=== PATIENT | female | born 1970 | race Caucasian/White ===

== ENCOUNTER 2021-12-14 10:05 | Outpatient (REF) | payer OTHER, SELFPAY ==
[2021-12-14 10:52] LABS: MANUAL DIFF FLAG NO
[2021-12-14 10:58] LABS: Basophils Percent Auto 0.5 % (0-2); Eosinophils Absolute Auto 0.1 X10*3/uL (0.0-0.4); Eosinophils Percent Auto 1.1 % (0-4); Hematocrit 43.9 % (37.0-47.0); Hemoglobin 14.2 g/dl (12.0-16.0); Imm Gran Abs Auto 0.02 X10*3/uL (0.00-0.03); Imm Gran Pct Auto 0.3 % (0.0-0.4); Lymphocytes Absolute Auto 1.8 X10*3/uL (1.2-4.9); Lymphocytes Percent Auto 24.6 % (20-40); Mean Corpuscular HGB Conc 32.3 g/dl (31.0-35.0); Mean Corpuscular Hemoglobin 30.2 pg (27.0-33.0); Mean Corpuscular Volume 93.4 fL (80.0-98.0); Mean Platelet Volume 9.5 fL (9.4-12.3); Monocytes Absolute Auto 0.5 X10*3/uL (0.1-1.2); Monocytes Percent Auto 6.7 % (2-11); Neutrophils Percent Auto 66.8 % (45-73); Platelet Count 372 X10*3/uL (160-400); Red Cell Distribution Width 12.8 % (11.0-16.0); White Blood Count 7.4 X10*3/uL (4.8-10.8)
[2021-12-14 11:09] LABS: Estimated Average Glucose 103 mg/dL; Hemoglobin A1c % 5.2 %
[2021-12-14 11:45] LABS: Alanine Aminotransferase 33 U/L (0-31); Albumin Level 4.4 g/dL (3.5-5.0); Alkaline Phosphatase 136 U/L (39-117); Anion Gap 15 (12-20); Aspartate Amino Transferase 28 U/L (5-31); Bilirubin Total 1.3 mg/dL (0.0-1.0); Blood Urea Nitrogen 17 mg/dL (9-16); Calcium 10.1 mg/dL (8.4-10.2); Carbon Dioxide 29 mmol/L (22-29); Chloride 100 mmol/L (96-108); Cholesterol 235 mg/dL; Estimated Glomerular Filt Rate > 60; Glucose Fasting 102 mg/dL (60-99); HDL Cholesterol 65 mg/dL; LDL Cholesterol Calculated 141 mg/dl; Potassium 4.7 mmol/L (3.3-5.1); Sodium 139 mmol/L (135-145); Total Protein 7.7 g/dL (6.5-8.0); Triglycerides 148 mg/dL
[2021-12-14 12:10] LABS: Free T4 (Free Thyroxine) 1.35 ng/dL (0.71-1.85); Thyroid Stimulating Hormone 0.41 uIU/mL (0.32-4.0); Vitamin D 25-OH Total 55.9 ng/mL (>30)
== END 2021-12-14 10:06 | disposition home or self-care (01) ==
LOC: HO.MANLDS 10:05
PROVIDERS: PCP Physician Assistant; Visit Provider Physician Assistant
DX: Z00.00 Encounter for general adult medical examination without abnormal findings (principal)
CPT/HCPCS: 36415; 80053; 80061; 82306; 83036; 84439; 84443; 85025

== ENCOUNTER 2022-02-04 12:27 | Outpatient (REF) | payer OTHER, SELFPAY ==
[2022-02-04 18:34] LABS: C Reactive Protein 3.29 mg/dL (< or = 0.50); Rheumatoid Factor < 15.0 IU/mL (<15.0); Uric Acid 6.4 mg/dL (2.4-5.7)
[2022-02-04 19:15] LABS: Erythrocyte Sedimentation Rate 30 MM/HR (0-20)
[2022-02-05 17:22] LABS: Follicle Stimulating Hormone 53.1 mIU/mL
[2022-02-05 17:32] LABS: Lyme Abs Screen <0.90 index
[2022-02-06 14:22] LABS: Anti Nuclear Antibody Screen NEGATIVE (NEGATIVE)
[2022-02-07 03:42] LABS: A. Phagocytophilum Ab IgG <1:64 (<1:64); A. Phagocytophilum Ab IgM <1:20 (<1:20); E. Chaffeensis Ab IgG <1:64 (<1:64); E. Chaffeensis Ab IgM <1:20 (<1:20)
[2022-02-09 19:21] LABS: Estradiol Free 0.18 pg/mL; Estradiol, Ultrasensitive 9 pg/mL
[2022-02-14 18:02] LABS: Progesterone 0.2 ng/mL
== END 2022-02-04 12:28 | disposition home or self-care (01) ==
LOC: HO.MANLDS 12:27
PROVIDERS: Visit Provider Physician Assistant
DX: M25.50 Pain in unspecified joint (principal); N95.1 Menopausal and female climacteric states
CPT/HCPCS: 82670; 82681; 83001; 83002; 84144; 84550; 85652; 86038; 86039; 86140; 86431; 86617; 86618; 86666

== ENCOUNTER 2022-03-01 09:18 | Outpatient (REF) | payer OTHER, SELFPAY ==
[2022-03-01 11:41] LABS: Uric Acid 5.3 mg/dL (2.4-5.7)
== END 2022-03-01 09:19 | disposition home or self-care (01) ==
LOC: HO.MANLDS 09:18
PROVIDERS: Visit Provider Physician Assistant
DX: M10.9 Gout, unspecified (principal)
CPT/HCPCS: 36415; 84550

== ENCOUNTER 2023-03-31 10:11 | Outpatient (REF) | payer OTHER, SELFPAY ==
[2023-03-31 16:23] LABS: Uric Acid 6.4 mg/dL (2.4-5.7)
== END 2023-03-31 10:12 | disposition home or self-care (01) ==
LOC: HO.MANLDS 10:11
PROVIDERS: Visit Provider Physician Assistant
DX: E79.0 Hyperuricemia without signs of inflammatory arthritis and tophaceous disease (principal)
CPT/HCPCS: 36415; 84550

== ENCOUNTER 2023-10-03 09:46 | Outpatient (REF) | payer OTHER, SELFPAY ==
[2023-10-03 12:35] LABS: MANUAL DIFF FLAG NO
[2023-10-03 12:52] LABS: Basophils Percent Auto 0.5 % (0-2); Eosinophils Absolute Auto 0.1 X10*3/uL (0.0-0.4); Eosinophils Percent Auto 1.3 % (0-4); Hemoglobin 12.4 g/dl (12.0-16.0); Imm Gran Abs Auto 0.01 X10*3/uL (0.00-0.03); Imm Gran Pct Auto 0.2 % (0.0-0.4); Lymphocytes Absolute Auto 1.6 X10*3/uL (1.2-4.9); Lymphocytes Percent Auto 29.2 % (20-40); Mean Corpuscular HGB Conc 32.6 g/dl (31.0-35.0); Mean Platelet Volume 9.7 fL (9.4-12.3); Monocytes Absolute Auto 0.4 X10*3/uL (0.1-1.2); Monocytes Percent Auto 7.3 % (2-11); Neutrophils Absolute Auto 3.4 x10*3/uL (2.0-8.3); Neutrophils Percent Auto 61.5 % (45-73); Platelet Count 314 X10*3/uL (160-400); Red Blood Count 4.13 X10*6/uL (4.20-5.50); Red Cell Distribution Width 13.4 % (11.0-16.0); White Blood Count 5.6 X10*3/uL (4.8-10.8)
[2023-10-03 13:02] LABS: Estimated Average Glucose 97 mg/dL
[2023-10-03 13:10] LABS: Alanine Aminotransferase 23 U/L (0-31); Albumin Level 3.9 g/dL (3.5-5.0); Alkaline Phosphatase 135 U/L (39-117); Anion Gap 12 (12-20); Aspartate Amino Transferase 18 U/L (5-31); Bilirubin Total 0.5 mg/dL (0.0-1.0); Blood Urea Nitrogen 16 mg/dL (9-16); Calcium 9.6 mg/dL (8.4-10.2); Carbon Dioxide 26 mmol/L (22-29); Chloride 102 mmol/L (96-108); Estimated Glomerular Filt Rate > 60; Glucose Random 89 mg/dL (60-115); Iron 105 mcg/dL (30-160); Magnesium 2.1 mg/dL (1.6-2.6); Percent Iron Saturation 34 % (15-50); Phosphorus 3.3 mg/dL (2.7-4.5); Sodium 136 mmol/L (135-145); Total Iron Binding Capacity 305 mcg/dL (228-428); Total Protein 7.3 g/dL (6.5-8.0); Unsaturated Iron Binding 200 ug/dL
[2023-10-03 13:30] LABS: Ferritin 235 ng/mL (10-250); Free T4 (Free Thyroxine) 1.21 ng/dL (0.71-1.85); Thyroid Stimulating Hormone 0.09 uIU/mL (0.32-4.0)
== END 2023-10-03 09:47 | disposition home or self-care (01) ==
LOC: HO.MANLDS 09:46
PROVIDERS: Visit Provider Physician Assistant
DX: M62.830 Muscle spasm of back (principal)
CPT/HCPCS: 36415; 80053; 82550; 82728; 83036; 83540; 83735; 83970; 84100; 84439; 84443; 85025

== ENCOUNTER 2025-02-22 11:29 | Outpatient (REF) | payer OTHER, SELFPAY ==
--- OUTSIDE RECORDS SUMMARY | 2023-11-10 05:00 | XMS_ITS ---
Author Organization [facility] Address [address] [address] Care Team Providers Care Metal Turner Name Role Phone YUMIKO MOELLER Unavailable [phone] REASON FOR VISIT ? PROLAPSE Encounters Encounter Location Date Provider Diagnosis [facility] [employer] [address] [address] 11/10/2023 YUMIKO MOELLER Plan Of Treatment No Information Progress Notes * HERRERA JEFFERYADOB:1970 (54 yo F)Acc No.[id number]:11/10/2023 Progress Note Patient: DIMITRI WALLS Provider: Ney MOELLER MD :1970 A ge:53 Y S ex:Female Date:11/10/2023 Address:[address] [place], [place] [id number] Subjective: * Chief Complaints: * 1 . ? PROLAPSE. * Medical History: Objective: * Vitals: Assessment: Plan: * Treatment: * Images: Billing Information: * Visit Code: * Procedure Codes: * Electronic signature of YUMIKO MOELLER MD on 02/22/2025 at 12:43 PM EDT Sign off status: Pending * Provider: Ney MOELLER MD Date: 11/10/2023 Generated for Cecyi salome/Phoebe/eTransmitting on: 02/22/2025 12:43 PM EDT
--- OUTSIDE RECORDS SUMMARY | 2025-02-22 12:43 | XMS_ITS | Continuity of Care Document ---
Author Organization [facility], [facility] Address [address] [place] [address] [place] [address] Assessment No assessment recorded. Plan of Treatment Reminders Order Date Submit Date Provider Last Modified By Organization Details Last Modified Time Details Appointments FOLLOW UP 15 2024 10:45A M ZAKI BANUELOS Not available Not available Not available Lab CMP, serum or plasma 2024 025 [facility], [address] [place] [address], [id number], 02/22/2025 11:23:51 hemoglobi n A1c, QN, blood 2024 025 [facility], [address] [place] [address], [id number], 02/22/2025 11:23:51 TSH + free T4, serum 2024 025 [facility], [address] [place] [address], [id number], 02/22/2025 11:23:51 CBC w/ auto diff 2024 025 [facility], [address] [place] [address], [id number], 02/22/2025 11:23:51 Referral None recorded. Procedures None recorded. Surgeries None recorded. Imaging None recorded. Medication Orders None recorded. Patient TargetsNo targets recorded. Patient InstructionsNo instructions recorded. Reason for Referral None Reported. Problems Name Problem SNOMED Code Status Onset Date Resolution Date Notes Provider Name and Address Organization Details Recorded Time Hypothyr oidism 79111375 Active 2017 Not Available [facility] 3 13:45:22 Morbid obesity 354124697 Completed 201702/05/2019 Henry Hoyos, DO [address] [place], [address], [facility] 9 16:19:51 Irritabl e bowel syndrome 39015380 Active 2017 Not Available [facility] 3 13:45:22 Low back pain 990089520 Active 2017 Not Available [facility] 3 13:45:22 Non-alco holic fatty liver 413342684 Active 2017 Not Available [facility] 3 13:45:22 Urinary tract infectio us disease 09969199 Active 11/2012 Not Available [facility] 3 13:45:22 Menometr orrhagia 609549267 Active 2017 Not Available [facility] 3 13:45:22 Non-neop lastic nevus 351633514 Active 2017 Not Available [facility] 3 13:45:22 Paroxysm al atrial fibrilla tion 469973976 Active 2018 2/2 pneumoni a Not Available [facility] 3 13:45:22 Atrial fibrilla tion 15166799 Active 2019 Not Available [facility] 3 13:45:22 Multiple benign melanocy tic nevi 967968073 Active 2021 Not Available [facility] 3 13:45:22 Colorect al cancer detected by DNA-base d stool screenin g 636974252 Active 2021 Not Available [facility] 3 13:45:22 Pain of multiple joints 02267922 Active 2021 Not Available [facility] 3 13:45:22 Menopaus e Active 2021 Not Available [facility] 3 13:45:22 Uric acid level above referenc e range 39372089 Active 2021 Not Available [facility] 3 13:45:22 Gout 11277175 Active 2021 Not Available [facility] 3 13:45:22 Anxiety 83510837 Active 2021 ZAKI BANUELOS [address] [place], [address], [facility] 5 11:21:42 Pain of left hip joint 9891606113 90250 Active 2022 Not Available [facility] 3 13:45:22 Recurren t major depressi ve episodes , moderate 518881785 Active 2022 Not Available [facility] 3 13:45:22 Obesity 321619316 Active 2022 Not Available [facility] 3 13:45:22 Osteoart hritis of left hip joint 8692663669 05263 Active 2022 Not Available [facility] 3 13:45:22 Pain of hip region 36756077 Active 2022 Not Available [facility] 3 13:45:22 Impaired fasting glycemia 895032752 Active 2022 ZAKI BANUELOS [address] [place], [address], [facility] 3 14:39:50 Overweig ht 241605437 Active 2022 ZAKI BANUELOS [address] [place], [address], [facility] 3 09:49:44 Constipa tion 57961334 Active 2023 ZAKI BANUELOS [address] [place], [address], [facility] 4 11:04:32 Depressi ve disorder 72808019 Active 2023 ZAKI BANUELOS [address] [place], [address], [facility] 4 11:08:51 Spasm of back muscles 988400606 Active 2023 ZAKI BANUELOS [address] [place] [address], [address], [facility] 4 11:09:38 Pain of left knee joint 7516528169 10456 Active 2023 ZAKI BANUELOS [address] [place] [address], [address], [facility] 4 11:32:32 Osteopen ia 351600922 Active 2023 ZAKI BANUELOS [address] [place] [address], [address], [facility] 4 08:59:26 Patellof emoral syndrome of left knee 7524832701 061249 Active 2023 Henry Hoyos DO [address] [place] [address], [address], [facility] 4 11:38:59 Severe major depressi on, single episode, without psychoti c features 87306793 Active 2024 ZAKI BANUELOS [address] [place] [address], [address], [facility] 5 11:16:08 Intolera nt of heat 02827438 Active 2024 ZAKI BANUELOS [address] [place] [address], [address], [facility] 5 11:22:05 Problem Notes None recorded. Procedures Surgical History Date Name Laterality Status Provider Name and Address Organization Details Recorded Time 025 total replacement of hip completed ZAKI BANUELOS [address] [place] [address], [phone], [facility] 09/20/2024 11:26:09 024 Corticosteroid Injection completed Henry Hoyos DO [address] [place] [address], [address], [facility] 12/12/2023 11:38:50 022 Colonoscopy completed Shar Hoyos [facility] 03/22/2022 11:56:53 Imaging Results None recorded. Procedure Notes None recorded. Medical Equipment None Reported. Allergies Allergen ID Allergen Name Allergen Category Reaction Reaction Severity Criticality Documentation Date Start Date Code Code System Note Provider Name and Address Organization Details Recorded Time 210 amoxicill in medicatio n Not available Not available Not available 10/27/2017 723 RxNorm Letitia petersen, [facility] 8 09:30:30 8698 cefazolin sodium medicatio n Not available Not available Not available 09/20/202434151 1 RxNorm ZAKI BANUELOS [address] [place], [address], [facility] 5 11:25:05 Medications Name Sig Start Date Stop Date Status Note LastModified by Organization Details LastModified Time celecoxib 200 mg capsule TAKE 1 CAPSULE BY MOUTH TWICE DAILY NEEDED 2024 active Not Available Not Available Not Avai lable venlafaxi ne ER 37.5 mg capsule,e xtended release 24 hr Take 1 capsule every day by oral route for 90 days. 04/17 completed Not Available Not Available Not Available venlafaxi ne ER 75 mg capsule,e xtended release 24 hr TAKE 1 CAPSULE BY MOUTH EVERY DAY 06/09 completed Not Available Not Available Not Available ibuprofen 800 mg tablet 07/30 completed Not Available Not Available Not Available diltiazem CD 180 mg capsule,e xtended release 24 hr Take 1 capsule every day by oral route. active Not Available Not Available No t Available tizanidin e 4 mg tablet TAKE 1 TABLET BY MOUTH THREE TIMES DAILY 03/31 completed Not Available Not Available Not Available fluconazo le 150 mg tablet 07/30 completed Not Available Not Available Not Available levonorge strel-eth inyl estradiol 0.1 mg-20 mcg tablet 07/30 completed Not Available Not Available Not Available hydrocodo ne 5 mg-acetam inophen 325 mg tablet TAKE 1 TABLET BY MOUTH EVERY 6 HOURS FOR 7 DAYS NEEDED 05/26 completed Not Available Not Available Not Available diltiazem CD 240 mg capsule,e xtended release 24 hr TAKE 1 CAPSULE BY MOUTH EVERY DAY 01/19 completed Not Available Not Available Not Available meloxicam 15 mg tablet TAKE 1 TABLET BY MOUTH EVERY DAY WITH FOOD NEEDED FOR PAIN 03/19 completed Not Available Not Available Not Available prednison e 20 mg tablet TAKE 1 TABLET BY MOUTH EVERY DAY FOR 14 DAYS 11/15 completed Not Available Not Available Not Available sertralin e 100 mg tablet TAKE 1 TABLET BY MOUTH EVERY DAY 2024 active Not Available Not Available Not Avai lable venlafaxi ne ER 150 mg capsule,e xtended release 24 hr TAKE 1 CAPSULE BY MOUTH EVERY DAY 11/10 completed Not Available Not Available Not Available sumatript an 50 mg tablet Take 1 tablet by oral route as needed for 30 days. 05/08 completed Not Available Not Available Not Available diltiazem ER 240 mg capsule,2 4 hr,extend ed release Take 1 capsule every day by oral route. 07/02 completed Not Available Not Available Not Available allopurin ol 100 mg tablet TAKE 1 TABLET BY MOUTH EVERY DAY 12/03 completed Not Available Not Available Not Available sulfameth oxazole 800 mg-trimet hoprim 160 mg tablet 07/30 completed Not Available Not Available Not Available peg-elect rolyte solution 420 gram oral solution 05/22 completed Not Available Not Available Not Available aspirin 81 mg tablet,de layed release 09/20 completed Not Available Not Available Not Available tramadol 50 mg tablet TAKE 1 TABLET BY MOUTH THREE TIMES DAILY NEEDED FOR PAIN 03/31 completed Not Available Not Available Not Available amitripty line 50 mg tablet TAKE 1 TABLET BY MOUTH EVERY DAY 05/24 completed d/c Not Available Not Available Not Available Synthroid 175 mcg tablet TAKE 1 TABLET DAILY active Not Available Not Available No t Available meloxicam 7.5 mg tablet TAKE 1 TABLET BY MOUTH TWICE DAILY NEEDED 05/26 completed Not Available Not Available Not Available amitripty line 25 mg tablet TAKE 1 TABLET BY MOUTH EVERY DAY 03/19 completed Not Available Not Available Not Available lorazepam 0.5 mg tablet TAKE 1 TABLET BY MOUTH THREE TIMES DAILY NEEDED active taking 2xs a day, morning- evening Not Available Not Available Not Available phenazopy ridine 100 mg tablet 07/30 completed Not Available Not Available Not Available paroxetin e 20 mg tablet TAKE 1 TABLET BY MOUTH ONCE DAILY 06/09 completed Not Available Not Available Not Available oseltamiv ir 75 mg capsule TAKE 1 CAPSULE BY MOUTH TWICE DAILY FOR 5 DAYS 01/26 completed Not Available Not Available Not Available lidocaine 5 % topical patch APPLY 1 PATCH TOPICALL Y TO THE SKIN DAILY. MAY WEAR UP TO 12 HOURS 09/20 completed Not Available Not Available Not Available flecainid e 50 mg tablet Take 1 tablet twice a day by oral route. 09/22 completed Not Available Not Available Not Available indometha parish 25 mg capsule 05/08 completed Not Available Not Available Not Available betametha sone, augmented 0.05 % topical ointment 12/03 completed Not Available Not Available Not Available gabapenti n 300 mg capsule TAKE 1 CAPSULE BY MOUTH TWICE DAILY FOR 7 DAYS DIRECTED 04/14 completed Not Available Not Available Not Available diclofena c sodium 75 mg tablet,de layed release TAKE 1 TABLET BY MOUTH TWICE DAILY DIRECTED 04/21 completed Not Available Not Available Not Available mupirocin 2 % topical ointment APPLY TOPICALL Y TO BILATERA L NASAL VESTIBUL E TWICE DAILY STARTING 5 DAYS PRIOR TO SURGERY 09/20 completed Not Available Not Available Not Available methylpre dnisolone 4 mg tablets in a dose pack FOLLOW PACKAGE DIRECTIO NS 05/26 completed Not Available Not Available Not Available ondansetr on 4 mg disintegr ating tablet DISSOLVE 1 TABLET IN THE MOUTH EVERY 8 HOURS NEEDED FOR NAUSEA OR VOMITING . 09/20 completed Not Available Not Available Not Available sertralin e 50 mg tablet TAKE 1 TABLET BY MOUTH EVERY DAY DIRECTED 01/26 completed Not Available Not Available Not Available nabumeton e 500 mg tablet TAKE 1 TABLET BY MOUTH TWICE DAILY 12/21 completed Not Available Not Available Not Available oxycodone 5 mg tablet TAKE 1 TABLET (5 MG TOTAL) BY MOUTH EVERY 4 HOURS FOR 5 DAYS. MAX DAILY AMOUNT: 30 MG 09/20 completed Not Available Not Available Not Available bupropion HCl XL 150 mg 24 hr tablet, extended release TAKE 1 TABLET BY MOUTH EVERY DAY DIRECTED 01/19 completed Not Available Not Available Not Available nitrofura ntoin monohydra te/macroc rystals 100 mg capsule 07/30 completed Not Available Not Available Not Available duloxetin e 60 mg capsule,d elayed release TAKE 1 CAPSULE BY MOUTH EVERY DAY 01/19 completed Not Available Not Available Not Available pregabali n 75 mg capsule TAKE 1 CAPSULE BY MOUTH TWICE DAILY FOR 14 DAYS DIRECTED 05/09 completed Not Available Not Available Not Available pregabali n 100 mg capsule TAKE 2 CAPSULES BY MOUTH X 1 WEEK THEN TAKE 1 CAPSULE X 1 WEEK 01/19 completed Not Available Not Available Not Available pregabali n 150 mg capsule TAKE ONE CAPSULE BID PRN FOR PAIN 11/30 completed Not Available Not Available Not Available pregabali n 200 mg capsule TAKE 1 CAPSULE BY MOUTH TWICE DAILY 01/19 completed TAKING ONE > TAPERING OFF, will use 75 mg qd after then stop Not Available Not Available Not Available chlorhexi dine gluconate 0.12 % mouthwash RINSE AND SPIT BY MOUTH WITH 15 ML TWICE DAILY FOR 2 DAYS 09/20 completed Not Available Not Available Not Available Aspir-81 Take one tablet once a day 01/26 completed Not Available Not Available Not Available amitripty line 11/10 completed Not Available Not Available Not Available hydrocodo ne 5 mg-acetam inophen 300 mg tablet Take 1 tablet every 4 hours by oral route for 7 days. 04/04 completed Not Available Not Available Not Available ProAir HFA 90 mcg/actua tion aerosol inhaler Inhale 2 puffs every 4 hours by inhalati on route for 30 days. 09/22 completed Not Available Not Available Not Available Jolessa 0.15 mg-30 mcg (91) tablets,3 month dose pack Take 1 tablet every day by oral route. 05/08 completed Not Available Not Available Not Available oxycodone 10 mg tablet TAKE 1 TABLET BY MOUTH FOUR TIMES DAILY FOR 14 DAYS NEEDED 09/20 completed Not Available Not Available Not Available febuxosta t 40 mg tablet TAKE 1 TABLET DAILY active Not Available Not Available No t Available Contrave 8 mg-90 mg tablet,ex tended release Take two tablets by mouth twice daily 05/26 completed Not Available Not Available Not Available Contrave 11/10 completed Not Available Not Available Not Available duloxetin e 40 mg capsule,d elayed release TAKE 1 CAPSULE BY MOUTH EVERY DAY 09/20 completed Not Available Not Available Not Available semagluti de 0.25 mg or 0.5 mg (2 mg/1.5 mL) subcutane ous pen injector inject 0.25 mg every week for four weeks 03/31 completed Not Available Not Available Not Available semagluti de 1.13mg once weekly active Not Available Not Available No t Available levonorge strel 0.1 mg-ethiny l estradiol 0.02 mg (21)/iron (7) tablet Take 1 tablet every day by oral route for 28 days. 07/30 completed Not Available Not Available Not Available Rybelsus 14 mg tablet TAKE 1 TABLET BY MOUTH EVERY DAY DIRECTED 04/21 completed Not Available Not Available Not Available Mounjaro 2.5 mg/0.5 mL subcutane ous pen injector Inject 0.5 mL every week by subcutan eous route as directed for 30 days. 11/10 completed Not Available Not Available Not Available Ozempic 0.25 mg or 0.5 mg (2 mg/3 mL) subcutane ous pen injector 03/31 completed Not Available Not Available Not Available Zepbound 5 mg/0.5 mL subcutane ous pen injector Inject 5 mg every week by subcutan eous route as needed for 30 days. 12/21 completed Not Available Not Available Not Available Zepbound 2.5 mg/0.5 mL subcutane ous pen injector Inject 0.5 mL every week by subcutan eous route as directed for 30 days. 02/19 completed Not Available Not Available Not Available Vitals Date Recorded Body height Body mass index (BMI) Body weight Oxygen saturation Oxygen saturation in Arterial blood by Pulse oximetry Heart rate Systolic blood pressure Diastolic blood pressure Provider Name and Address Organization Details Last Updated DateTime 07/01/202 5 168.28 cm 40.5 kg/m2 626914. 87 g 98 % 98 % 70 /min 124 mm[Hg] 72 mm[Hg] [facility] 10:57:56 Social History Question Answer Notes LastModified by Organizat ion Details LastModified Time Tobacco Smoking Status Never Smoker Not Available [facility] 06/27/2020 03:36:23 What Was The Date Of Your Most Recent Tobacco Screening? 02/22/2025 [email or web address] Information not available 02/22/2025 Sex: Unknown Functional Status Question Answer Note LastModified by Organization D etails LastModified Time Do you or have you ever used any other forms of tobacco or nicotine? No [email or web address] Information not available 06/09/2023 Mental Status None recorded. Family History Relationship Description Onset Age of this Age Resolved Age Notes LastModified by Organization Details LastModified Time Mother Depressive disorder Not available 09/23 09:30:19 Mother Obesity Not availabl e 09/23/2018 09:30:48 Mother Disorder of thyroid gland Not available 09/23 09:31:01 Mother Diabetes mellitus Not available 09/23 09:31:42 Mother Malignant tumor of pancreas [email or web address] Not available 14:27:04 Mother Osteoporosis Not cristel ilable 09/23/2018 09:39:40 Mother Malignant neoplasm of uterus [email or web address] Not available 14:27:04 Sister Depressive disorder Not available 09/23 09:30:19 Sister Migraine Not availab le 09/23/2018 09:30:30 Sister Obesity Not availabl e 09/23/2018 09:30:48 Sister Disorder of thyroid gland Not available 09/23 09:31:01 Sister Diabetes mellitus Not available 09/23 09:31:42 Sister Essential hypertension [email or web address] Not available 01/19/2025 14:27:04 Sister Cerebrovascu lar accident Not available 09:37:19 Father Obesity Not availabl e 09/23/2018 09:30:48 Father Gout [email or web address] Not availab le 01/19/2025 14:27:04 Father Diabetes mellitus Not available 09/23 09:31:42 Father Cerebrovascu lar accident Not available 09:32:02 Father Essential hypertension [email or web address] Not available 01/19/2025 14:27:04 Paternal Grandmother Cerebrovascu lar accident Not available 09:37:27 Maternal Grandfather Malignant tumor of colon 80 [email or web address] Not available 14:27:04 Medical History Condition Response Coronary Artery Disease N Other N Gout N Blood Diseases N Kidney Stones N Hyperthyroidism N Blood Transfusion N Breast Cancer N Hypothyroidism Y Lung Disease N COPD N Depression N Defects or Inherited Disease N Difficulty Swallowing N Anesthesia Complications N Meniere's disease N Anxiety Disorder N Muscle, Joint, or Bone Problems N Obesity Y Vision or Eye Problems Y Arthritis N Polyps N Infertility N Mental Disorder N Cancer N Varicosities N Stroke N Endometriosis N Bladder or Kidney Problems N High Cholesterol N Liver Disease Y Fibromyalgia N Headaches Y Kidney Disease N Allergies/Hayfever N Heart Problems N Hospitalizations N Thyroid Problems N GI Problems Y Skin Problems N Eating Disorder N Anemia N MRSA exposure N Constipation N Mental Illness N Ovarian Cancer N Diabetes N Seizures/Epilepsy N Tuberculosis N Congestive Heart Failure (CHF) N Eczema Y Diverticulitis N Abuse/Domestic Violence N Asthma N Reflux/GERD N Hepatitis N Heart Disease N Pulmonary Embolism N Pre-Eclampsia N Hypertension N Chronic Ear Infections N Osteoporosis N Chicken Pox Y Autism Spectrum Disorder (ASD) N Thrombophilias N Gynecological History Statement/Question Response Duration of Flow (days) 4 Flow Moderate Age at Menarche 13 Frequency of Cycle (Q days) 28 Obstetrics History GPAL:G 2 P 2 0 0 0 Type Value Full Term 2 Total 2 Immunizations Vaccine Type Date Status Note Provider Nam e and Address Organization Details Recorded Time Influenza, split virus, quadrivalent, preservative 1 completed Not Available [facility] 06/13/2023 11:24:16 COVID-19, mRNA, LNP-S, PF, 30 mcg/0.3 mL dose 1 completed Not Available [facility] 06/13/2023 11:24:17 COVID-19, mRNA, LNP-S, PF, 30 mcg/0.3 mL dose 1 completed Not Available [facility] 06/13/2023 11:24:17 COVID-19, mRNA, LNP-S, PF, 30 mcg/0.3 mL dose 1 completed Not Available [facility] 06/13/2023 11:24:17 zoster, unspecified formulation 2 completed Not Available [facility] 06/13/2023 11:24:17 zoster, unspecified formulation 2 completed Not Available [facility] 06/13/2023 11:24:17 Tdap 3 completed Not Available [facility] 06/13/2023 11:24:17 MMR 7 completed Not Available [facility] 06/13/2023 11:24:17 Past Encounters Encounter ID Performer Location Encounter Start Date Encounter Closed Date Diagnosis/Indication Diagnosis SNOMED-CT Code Diagnosis ICD10 Code Diagnosis [facility] [id number] [facility] [address] [facility] [address] [address] [facility] [place] [address] 01/26/2025 10:56:37 01/26/2025 14:33:23 Depressive disorder 81317765 F33.1 will increase the medication to 100 mgf/u in one week if no improvemen t may consider prozacor adding seroquel Anxiety 46280374 F41.9 cont ativan [id number] Henry Hoyos [facility] [address], [place] [address] 02/07/2025 09:47:33 02/07/2025 10:33:08 Depression screening 611039865 Z13.31 negative Depressive disorder 3548 9007 F33.1 doing much betterwill cont on current dose [id number] Henry Hoyos [facility] [address] [facility], [place] [address] 02/22/2025 10:44:25 02/22/2025 11:50:25 Depression screening 711756251 Z13.31 negative Severe elisha or depression, single episode, without psychotic features 18004839 F32.2 is improving every week, still having sad episodes which is to be excepted Anxiety 82229088 F41.9 cont ativan Pain of le ft knee joint 6508389820 53326 M25.562 stable, is still having some pain but more bearable after the injection Hypothyroidism 26064064 E03.8 recheck levels Impaired f asting glycemia 950071235 R73.01 will send in script for patient for the rybelsus Intolerant of heat 52190 007 R68.89 Health Concerns Section Related Observation LastModified by Organization Detai ls LastModified Time None Recorded Concern Status LastModified by Organization Details LastModified Time None Recorded Payers Encounter Date Sequence Insurance Name Policy Number Policy Arroyo Covered Member ID Arroyo Member ID Guarantor Name 02/22/2025 1 [employer] [id number] Juana Sellersrie [id number] Juana Dupree Notes Date Note Type Note Provider Name a nd Address Organization Details Recorded Time 5 text/html f/u two weeks the patient reports that she is doing okay the patient is noticing some heat intolerance on the medication (sertraline)which is a known side effect/risk on these types of medicationsneeds to be careful with keeping hydrated and staying cool when she canalso would like to check her thyroid as well the patient reports that she is overall stableno other changes needed at this timecontinue on current dosages otherwise will f/u in a few weeks 03/07/25 MM scheduled ZAKI BANUELOS [address] [place] [address], [place], [address], [facility] 02/22/2025 11:27:09 OBGyn Episode No OBEpisode recorded.
--- OUTSIDE RECORDS SUMMARY | 2025-02-22 12:43 | XMS_ITS | Clinical Summary ---
Author Organization [facility] Address [address] [place] [address] Care Team Providers Care Gis Analyst Developer Name Role Phone Henry Hoyos Primary Care Provider [phone] Allergies Active Allergy Reactions Criticality Noted Date Comments Amoxicillin Hives,Unknown 03/06/2013 Medications buPROPion XL (WELLBUTRIN XL) 150 mg tablet SMARTSI Tablet(s) By Mouth Daily 4 Active dilTIAZem CD (CARDIZEM CD) 240 mg 24 hr capsule Take 240 mg by mouth daily. [address] (IRENKA) 40 mg capsule,delayed release(DR/EC) capsule 4 Active febuxostat (ULORIC) 40 mg tablet Take 1 tablet by mouth once a day. 3 Active Synthroid 175 mcg tablet Take 1 tablet by mouth once a day. Active pregabalin (LYRICA) 200 mg capsule SMARTSI Capsule(s) By Mouth Twice Daily 4 Active mupirocin (BACTROBAN) 2% ointmentIndication s:Preoperative examination Apply topically to the affected area 2 times a day. Apply to bilateral nasal vestibule twice a day starting 5 days prior to surgery 22 g 4 Active celecoxib (CeleBREX) 200 mg capsule Take 1 capsule by mouth 2 times a day. 4 Active lidocaine (LIDODERM) 5% patch SMARTSI Patch(s) Topical Daily Active multivit-min/iron/ FA/vit K/lut (CENTRUM MINIS WOMEN 50 PLUS ORAL) Take by mouth. Activ e PATIENT REPORTED OTC MEDICATION Medication Name: loren medina This entry is to document a patient-report ed over the counter medication. Please do not continue this order for inpatient use. Active Vitamin D3 25 mcg (1,000 unit) capsule Take 1 capsule by mouth once a day. Active docusate sodium (COLACE) 100 mg capsule Take 100 mg by mouth 2 times a day. Active polyethylene glycol 3350 (MIRALAX) 17 gram packet Take 17 g by mouth. Mix powder in 4 to 8 oz of water, juice, coffee, or tea prior to administration . Active EX-LAX, SENNOSIDES, ORAL Take by mouth. Active LORazepam (ATIVAN) 0.5 mg tablet Take 0.5 mg by mouth daily as needed for anxiety. Active acetaminophen (TYLENOL) 325 mg tablet Take 2 tablets (650 mg total) by mouth every 6 hours. 5 Active aspirin 81 mg EC tablet Take 1 tablet (81 mg total) by mouth every 12 hours. 60 tablet 5 Active ondansetron (ZOFRAN ODT) 4 mg disintegrating tablet Dissolve 1 tablet (4 mg total) in the mouth every 8 hours as needed for nausea or vomiting. 10 tablet 5 Active Active Problems Problem Noted Date Diagnosed Date Primary osteoarthritis of left hip 08/24/2024 Primary osteoarthritis of both hips 08/03/2024 Morbid obesity 08/03/2024 Paroxysmal A-fib 08/03/2024 Hypothyroidism 08/03/2024 Essential hypertension 08/03/2024 JONNY (obstructive sleep apnea) 08/03/2024 Gout 08/03/2024 Encounters Date Type Department Care Team Description 12/20/2024 Orders Only [facility] [address] [place] [id number] Giovanni, ZAKI Earl 12/19/2024 myChart Message [facility] [address] [place] [id number] Rajat Herrmann MD Upcoming Dental Appointment from Last 3 Months Family History Relation Name Status Comments Father Alive Mother Social History Tobacco Use Types Packs/Day Years Used Date Smoking Tobacco: Never Smokeless Tobacco: Never Tobacco Cessation:Counseling Given: Not Answered Alcohol Use Standard Drinks/Week Comments Not Currently 0 (1 standard drink = 0.6 oz pur e alcohol) [facility] Utilities Answer Date Recorded In the past 12 months has th e electric, gas, oil, or water company threatened to shut off services in your home? No 08/24/2024 Hunger Vital Sign Answer Date Recorded Within the past 12 months, y ou worried that your food would run out before you got the money to buy more. Never true 08/24/20 24 Within the past 12 months, t he food you bought just didn't last and you didn't have money to get more. Never true 08/24/2024 Transportation Answer Date Recorded In the past 12 months, has l ack of reliable transportation kept you from medical appointments, meetings, work or from getting things needed for daily living? No 08/24/2024 Housing Answer Date Recorded Housing Risk Low 2 08/24/2024 Housing Risk Medium Not on file 08/24/2024 Housing Risk High Not on file 08/24/2024 What is your living situation today? [facility]STEAD[facility] 08/24/2024 Comments No Sex and Gender Information Value Date Recorded Sex Assigned at Female 03/14/2023 2:28 PM EDT Legal Sex Female 11:32 AM EDT Gender Identity Female 03/14/2023 2:28 PM EDT Sexual Orientation Straight 03/14/2023 2: 28 PM EDT Last Filed Vital Signs Vital Sign Reading Time Taken Comments Blood Pressure 120/70 08/25/2024 4:30 AM EST Pulse 91 08/25/2024 4:30 AM EST Temperature 36.4 C (97.5 F) 08/25/2024 4:30 AM EST Respiratory Rate 16 08/25/2024 11:5 3 AM EST Oxygen Saturation 98% 08/25/2024 4:30 AM EST Inhaled Oxygen Concentration - - Weight 111.5 kg (245 lb 12.8 oz) 08/24/2024 8:03 AM EST Height 165.8 cm (5' 5.28 ) 08/24/2024 8:03 AM ES T Body Mass Index 40.56 08/24/2024 8:03 AM EST Plan of Treatment Upcoming Encounters Date Type Department Care Team (Late st Contact Info) Description 08/31/2025 1:00 PM EST Follow-Up [facility] [address] [place] [id number] Rajat Herrmann MD [address] [place] [phone] Health Maintenance Due Date Last Done Comments Cologuard 1970 Colon Cancer Screening 1970 Colonoscopy 1970 FOBT / Fit Test 1970 HIV Screening 1970 Hepatitis C Screening 1970 Sigmoidoscopy 1970 Hepatitis B Vaccines (1 of 3 - 19+ 3-dose series) 1989 Pneumococcal Vaccine: 50+ Ye ars (1 of 1 - PCV) 2020 DTaP,Tdap,and Td Vaccines (2 - Td or Tdap) 11/30/2022 11/30/2012 COVID-19 Vaccine (4 - 2023-2 5 season) 2024 06/12/2021, 11/24/2020, 11/03/2020 Mammogram 07/05/2024 07/05/2022, 06/25, 07/03/2021, Additional history exists Alcohol/Substance Use Screening 08/25/2024 Depression Screening and Follow-Up 08/25/2024 Social Drivers of Health Tena ual Screening 08/25/2024 Influenza Vaccine (#1) 2025 06/12/2021 Basic Metabolic Panel 08/25/2025 08/25/2024 , 08/24/2024, 08/19/2024, Additional history exists RSV Vaccine (60+ years old a nd patients) (1 - 1-dose 75+ series) 2045 Zoster Vaccines Completed 11/18/2021, 09/16/2021 Medical Devices Implanted Type Area Clinical Research Technician Device Identifier Shelf Expiration Date Model / Serial / Lot Shell Acetabular Size F 3 Hole Sterile 54mm G7 - [id number] Implanted:Qty: 1 on 08/24/2024 by Rajat Herrmann MD at [facility] Implant Left: Hip Anjum 09/02/2033 [id number] / / [id number] Liner Polyethylene Crosslinked Highly Neutral 36mm Size F Longevity - [id number] Implanted:Qty: 1 on 08/24/2024 by Rajat Herrmann MD at [facility] Implant Left: Hip Anjum 02/03/[id number] / / [id number] Stem Femoral Full Proximal Profile Standard Neck Angle 135 Degree [id number] Echo Bi-Metric - [id number] Implanted:Qty: 1 on 08/24/2024 by Rajat Herrmann MD at [facility] Implant Left: Hip Anjum 04/04/2027 [id number] / / [id number] Head Femoral Ceramic Delta 36mm Standard Neck Type 1 Taper [employer] - [id number] Implanted:Qty: 1 on 08/24/2024 by Rajat Herrmann MD at [facility] Implant Left: Hip Anjum 06/17/2033 [id number] / / [id number] Screw Acetabular Self-Tapping [id number] Trilogy - [id number] Implanted:Qty: 1 on 08/24/2024 by Rajat Herrmann MD at [facility] Screw Left: Hip Anjum 03/04/[id number] / / [id number] Screw Acetabular Self-Tapping [id number] Trilogy - [id number] Implanted:Qty: 1 on 08/24/2024 by Rajat Herrmann MD at [facility] Screw Left: Hip Anjum 04/10/[id number]- 20 / / [id number] Procedures * Due to [place] MST law, this organization might not be sharing negative HIV tests. Procedure Name Priority Date/Time Associated Diagnosis Comments BASIC METABOLIC PANEL Routine 08/25/2024 1:22 AM EST from Last 3 Months or Most Recently Relevant to Health Maintenance Results * Due to [place] MST law, this organization might not be sharing negative HIV tests. * (ABNORMAL) Basic Metabolic Panel (08/25/2024 1:22 AM EST) NA 139 135 - 145 mmol/L 08/25/2024 1:53 AM EST [facility] K 4.1 3.5 - 5.3 mmol/L 08/25/2024 1:53 AM EST [facility] Cl 105 98 - 107 mmol/L 08/25/2024 1:53 AM [facility] CO2 24 22 - 32 mmol/L 08/25/2024 1:53 AM [facility] BUN 16 7 - 23 mg/dL 08/25/2024 1:53 AM [facility] Creatinine 0.74 0.50 - 1.20 mg/dL 08/25/2024 1:53 AM [facility] Glucose 135(H) 65 - 99 mg/dL 08/25/2024 1:53 AM [facility] Calcium 9.0 8.6 - 10.5 mg/dL 08/25/2024 1:53 AM [facility] Anion Gap 10 5 - 15 08/25/2024 1:53 AM [facility] eGFR >90 >=60 mL/min/1. 73m2 08/25/2024 1:53 AM [facility] Comment:The estimated glomer ular filtration rate (eGFR) is calculated using a new formula developed by the NKF-ASN task force to eliminate race-based correction factors. The new formula uses serum/plasma creatinine, age, and gender to determine eGFR. A value below 60mls/min might indicate kidney disease and will be flagged. For additional information, see Fry et al, Am J Kidney Dis. 2021;79(2):268- 288, A Unifying Approach for GFR estimation: Recommendations of the NKF-ASN Task Force on Reassessing the Inclusion of Race in Diagnosing Kidney Disease . Blood Structure of peripheral vein / Unknown Venipuncture / Unknown 08/25/2024 1:22 AM EST 08/25/2024 1:30 AM EST Rajat Herrmann MD LAB BLOOD ORDERABLES Final Result [facility] [address] [place] [address], [place] from Last 3 Months or Most Recently Relevant to Health Maintenance Insurance [employer] PPO/EPO/IND Advance Directives Documents on File Type Date Recorded Patient Child Care Attendant School Expl anation Health Care Proxy 08/03/2024 9:15 AM Heal th Care Proxy 08/03/24 * Full Code (Latest Code Status on File) Date Activated Date Inactivated Comments 08/24/2024 1:45 PM 08/25/2024 3:03 PM * Full Code Date Activated Date Inactivated Comments 08/24/2024 8:39 AM 08/24/2024 1:45 PM Care Teams Gis Analyst Developer Relationship Specialty Start Date End Date Henry Hoyos [address] [place] [id number] PCP - General Internal Medicine 03/14/23
[2025-02-22 13:31] LABS: MANUAL DIFF FLAG NO
[2025-02-22 13:36] LABS: Hematocrit 39.1 % (37.0-47.0); Hemoglobin 12.9 g/dl (12.0-16.0); Imm Gran Abs Auto 0.02 X10*3/uL (0.00-0.03); Imm Gran Pct Auto 0.3 % (0.0-0.4); Lymphocytes Absolute Auto 1.4 X10*3/uL (1.2-4.9); Mean Corpuscular HGB Conc 33.0 g/dl (31.0-35.0); Mean Corpuscular Hemoglobin 30.9 pg (27.0-33.0); Mean Corpuscular Volume 93.5 fL (80.0-98.0); NRBC Abs Auto 0.000 X10*3/uL (0.0-0.012); NRBC Pct Auto 0.0 /100WBC (0.0-0.2); Platelet Count 303 X10*3/uL (160-400); Red Blood Count 4.18 X10*6/uL (4.20-5.50); White Blood Count 6.2 X10*3/uL (4.8-10.8)
[2025-02-22 14:10] LABS: Hemoglobin A1C 108.8267 umol/L; Total Hemoglobin (HGBA1C) 3455.3187 umol/L
[2025-02-22 14:25] LABS: Alanine Aminotransferase 21 U/L (0-31); Albumin Level 4.2 g/dL (3.5-5.0); Alkaline Phosphatase 156 U/L (39-117); Anion Gap 14 (12-20); Aspartate Amino Transferase 25 U/L (5-31); Blood Urea Nitrogen 27 mg/dL (9-16); Calcium 9.5 mg/dL (8.4-10.2); Carbon Dioxide 25 mmol/L (22-29); Chloride 106 mmol/L (96-108); Estimated Glomerular Filt Rate > 60; Free T4 (Free Thyroxine) 1.06 ng/dL (0.71-1.85); Potassium 4.6 mmol/L (3.3-5.1); Sodium 140 mmol/L (135-145); Thyroid Stimulating Hormone 1.57 uIU/mL (0.32-4.0); Total Protein 7.2 g/dL (6.5-8.0)
== END 2025-02-22 11:30 | disposition home or self-care (01) ==
LOC: HO.MANLDS 11:29
PROVIDERS: Visit Provider Physician Assistant
DX: R73.01 Impaired fasting glucose (principal); E03.8 Other specified hypothyroidism
CPT/HCPCS: 36415; 80053; 83036; 84439; 84443; 85025